=== PATIENT | male | born 1970 | race Caucasian/White ===

== ENCOUNTER 2021-02-14 20:04 | Emergency (ER) | payer OTHER ==
[2021-02-14 21:10] LABS: BASOPHIL 0.8 % (0-2); EOSINOPHIL 1.4 % (0-5); HCT 40.4 % (42.0-52.0); HGB 13.3 g/dl (13.2-18.0); LYMPHOCYTE 26.9 % (15-48); MCH 31.9 pg (25.0-31.0); MCHC 32.9 g/dL (32.0-36.0); MCV 96.9 fL (78.0-100.0); MONOCYTE 8.1 % (0-12); MPV 9.6 fL (6.0-9.5); NEUTROPHIL 62.5 % (41-80); NRBC 0; PLT 330 K/uL (150-400); RBC 4.17 M/uL (4.70-6.00); RDW 12.4 % (11.5-14.0); WBC 7.1 K/uL (4.0-10.5)
[2021-02-14 21:32] LABS: ALBUMIN 3.8 g/dL (3.4-5.0); BILIRUBIN - TOTAL 0.2 mg/dL (0.2-1.0); BUN/CREAT RATIO (CALC) 11.8 RATIO; CREATININE 0.68 mg/dL (0.67-1.17); POTASSIUM 3.9 mmol/L (3.5-5.1); TOTAL PROTEIN 7.8 g/dL (6.4-8.2)
[2021-02-14] MEDS ORDERED: CEPHALEXIN500 M1 PO (21:42)
== END 2021-02-14 22:13 | disposition home or self-care (01) ==
LOC: FER 20:04
PROVIDERS: Nurse Practitioner Family
DX: L03.115 Cellulitis of right lower limb (principal); I10 Essential (primary) hypertension; J44.9 Chronic obstructive pulmonary disease, unspecified
CPT/HCPCS: 36415; 80053; 83690; 85025; J2270; J2405